=== PATIENT | female | born 1990 | race Caucasian/White ===

== ENCOUNTER 2017-03-01 17:13 | Inpatient (IN) ==
[~2017-03-01 17:13] MED LIST: CeFAZolin Pre 3,000 MG/100 ML 3,000 MG/100 ML BAG IVPB ONE; Famotidine 20 MG/2 ML VIAL IVP ONE; Metoclopramide 10 MG/2 ML VIAL IVP ONE; Oxytocin 20 units/ LR 1000 mL 20 UNIT/1,000 ML BAG IVC ONE; Ringers Solution, Lactated 1,000 ML IVC ONE
[2017-03-01] MEDS ORDERED: Ringers Solution, Lactated 1,000 ML IVC SCH (17:15)
[2017-03-01] MEDS ORDERED: Oxytocin 20 units/ LR 1000 mL 20 UNIT/1,000 ML BAG IVC SCH (17:15)
[2017-03-01 17:56] LABS: Basophils % 0.4 %; Hematocrit 35.8 % (35.3-44.9); Hemoglobin 11.9 g/dL (11.5-15.4); Immature Granulocytes % 0.4 % (0-4); Lymphocytes # 3.1 K/mcL (0.6-4.6); Mean Corpuscular HGB Conc 33.2 g/dL (31.6-35.5); Mean Corpuscular Hemoglobin 27.8 pg (28.0-33.3); Mean Corpuscular Volume 83.6 fL (83.0-100.0); Mean Platelet Volume 12.7 fL (9.4-12.4); Monocytes # 0.5 K/mcL (0.0-1.3); Monocytes % 4.3 %; Neutrophils # 7.5 K/mcL (1.6-8.9); Platelet Count 198 K/mcL (140-400); Red Blood Count 4.28 M/mcL (3.82-4.97); Red Cell Distribution Width 13.7 % (11.5-14.5); Segmented Neutrophils % 66.9 %
[2017-03-01 19:07] LABS: Amphetamine Screen,Urine Negative ng/mL (Cutoff=1000); Barbiturate Screen,Urine Negative ng/mL (Cutoff=200); Benzodiazepines Screen,Urine Negative ng/mL (Cutoff=200); Cannabinoid Screen,Urine Positive ng/mL (Cutoff = 50); Cocaine Screen,Urine Negative ng/mL (Cutoff= 300); Opiate Screen,Urine Negative ng/mL (Cutoff=300); Phencyclidine Screen,Urine Negative ng/mL (Cutoff=25)
--- NOTE | 2017-03-01 19:59 | OB/GYN History & Physical ---
Date of Encounter: 03/01/17 Time of Encounter: 19:53 Assessment and Plan (1) 37 weeks gestation of Current visit: Yes Status: Acute BPP 2/8 today. Tracing now reactive, but will keep for monitoring Pt keeps going to smoke against medical advice and leaving the unit. Discussed with patient the need for continuous monitoring and needing to observe the baby. Discussed risks including infant due to lack of early intervention when off monitor. Pt refuses nicotine patch. Repeat C/S tomorrow 24 hours after lovenox dose (2) DVT complicating Current visit: Yes Status: Acute Qualifiers: Trimester: third trimester Qualified Code(s): O22.33 - Deep phlebothrombosis in , third trimester (3) Hepatitis C Current visit: No Status: Chronic Qualifiers: Viral hepatitis chronicity: unspecified Hepatic coma status: without hepatic coma Qualified Code(s): B19.20 - Unspecified viral hepatitis C without hepatic coma (4) complicated by subutex maintenance, antepartum Current visit: No Status: Chronic History of Present Illness HPI: Ms. Delgado is a 26 year old female admitted from office for repeat c/s tomorrow for non reactive NST and BPP 2/8 with continuous monitoring overnight. 37+1 weeks with complications of history of DVT and PE, on lovenox, Hepatitis C , opiate dependancy with dismissal from maternal recovery program for non compliance. Labs:A-, Rubella immune, Hep C positive, all other serologies negative. Past Med Surg Social Fam HX - Past Medical History Source: patient Medical history: DVT, hepatitis, liver disease, pulmonary embolus, other ( opiate dependance) Psychiatric history: bipolar - Past Surgical History Surgical History: , other - Social History Smoking Status: Current every day smoker Packs per day: 1 Smokeless Tobacco Status: No Alcohol use: none Drug use: opiates, marijuana, other - Family History Mother Age: 52 Living Status: Still Living Hx Family Cardiac Disorders: No Hx Family Respiratory Disorders: No Hx Family Cancer: No Hx Family GI Disorders: No Hx Family Genitourinary Disorders: No Hx Family Endocrine Disorder: No Hx Family Musculoskeletal Disorders: No Hx Family Neuromuscular Disorders: No Hx Family Neurologic Disorders: No Hx Family HEENT Disorders: No Hx Family Autoimmune Disorders: No Hx Family Reproductive Disorders: No Hx Family Psychosocial Disorders: No Hx Family Medical Disorders: Yes (blood clot) Obstetrical History - Pregnancies : 3 Para: 2 Term: 2 : 0 Ab's: 0 Livin Medications and Allergies Buprenorphine HCl [Subutex] 4 mg PO BID 06/08/15 [History] Enoxaparin [Lovenox] 100 mg SQ Q12HR #28 syr 03/15/16 [Rx] Allergies promethazine [From Phenergan] Allergy (Verified 06/08/15 08:05) Rash tramadol [From Ultram] Allergy (Verified 06/08/15 08:07) Swelling of Lip/Tongue/Throat Exam - Constitutional Constitutional: well developed, well nourished, no acute distress - Neck Neck exam: full ROM - Lungs Respiratory exam: CTAB - Cardiovascular Cardiovascular exam: RRR, +S1, +S2 - Abdomen Abdomen: Present: bowel sounds normal, gravid, non tender - Extremities Extremities exam: normal capillary refill, normal inspection - Uterus Uterus exam: Present: normal size, normal contour Results Result Diagrams: 03/01/17 17:30 Abnormal lab results WBC 11.2 K/mcL (4.3-11.1) H 03/01/17 17:30 MCH 27.8 pg (28.0-33.3) L 03/01/17 17:30 MPV 12.7 fL (9.4-12.4) H 03/01/17 17:30 U Marijuana (THC) Screen Positive ng/mL (Cutoff = 50) H 03/01/17 18:30 All other labs normal.
[2017-03-01] MEDS: Nicotine 14 MG PATCH.TD24 TD SCH (23:49)
--- NOTE | 2017-03-02 03:55 | Anesthesia Evaluation PreOp ---
Date of Encounter: 03/02/17 Time of Encounter: 03:59 - Past History Planned Operation: Repeat Cardiac History: Denies any Significant Hx Pulmonary History: Smoker, Other (currently has PE (tx with therapeutic lovenox 200mg/day) MUST WAIT ATLEAST 24 HOURS for NEURAXIAL) SHERIFF SERGEANT History: Other (Scoliosis per patient (difficult previous regional)) Other Medical History: Hepatic (HEP C+), Other (Hx IV drug abuse - Herion ( currently tx of Subutex 4mg BID)) Anesthesia History: No Prior Anesthetic Complications, Past Anesthesia (1st section GA, 2nd section Regional,) : Yes Alcohol Use: none Drug use: opiates, marijuana, IV Drug Use, other Medications and Allergies Buprenorphine HCl [Subutex] 4 mg PO BID 06/08/15 [History] Enoxaparin [Lovenox] 100 mg SQ Q12HR #28 syr 03/15/16 [Rx] Allergies promethazine [From Phenergan] Allergy (Verified 06/08/15 08:05) Rash tramadol [From Ultram] Allergy (Verified 06/08/15 08:07) Swelling of Lip/Tongue/Throat Anesthesia Results - Labs 03/01/17 17:30 Anesthesia Exam - HEENT Pupil (Motor): Pupils equal Mallampati: III (right upper chipped tooth) Teeth: Normal Oral Opening: Greater than 3 - SHERIFF SERGEANT LOC: Oriented SHERIFF SERGEANT Motor: Normal RUE, Normal LUE, Normal RLE, Normal LLE, Normal Face SHERIFF SERGEANT Sensory: Normal: RUE, LUE, RLE, LLE, Face - Cardiac Rhythm: Regular Murmur: None - Pulmonary Breath Sounds: bilateral Clear Respiratory Effort: Symmetrical Anesthesia Assess/Plan ASA Score: 3 Modified Dulac Scale for Level of Consciousness: Cooperative, oriented, and tranquil Anesthetic Plan: General, Regional, Precautions (D/T treatment reg of LMWH must await FULL 24hrs for Regional, and d/t previous regional difficulties plan on waiting full 24hrs post INJ to resume LMWH therapy.) Monitoring Plan: Standard Monitors Recovery Plan: PACU
--- NOTE | 2017-03-02 03:56 | Event Note ---
Date of Encounter: 03/02/17 Time of Encounter: 03:53 Pt has now had 2 prolonged decelerations with monitoring. Does resolve to Cat I tracing. Pt with history of sleep apnea. Discussed with Dr. Hunt. Will apply pulse ox and O2 while sleeping. Continuous monitoring until delivery. Plan for C /S 24 hours after last lovenox dose unless prolonged decel reoccurs that does not resolve.
[2017-03-02] MEDS ORDERED: Ondansetron 4 MG/2 ML VIAL IVP PRN ×2 (09:16→12:32)
[2017-03-02] MEDS ORDERED: Metoclopramide 10 MG/2 ML VIAL IVP ONE (09:18)
[2017-03-02] MEDS ORDERED: CeFAZolin Pre 2,000 MG/100 ML 2,000 MG/100 ML BAG IVPB ONE (09:18)
[2017-03-02] MEDS ORDERED: Famotidine 20 MG/2 ML VIAL IVP ONE (09:18)
[2017-03-02] MEDS ORDERED: Ringers Solution, Lactated 1,000 ML IVC SCH ×2 (09:30→12:45)
[2017-03-02] MEDS ORDERED: *HR* Morphine Sulfate/PF 5 MG/10 ML AMPUL ONE (10:01)
[2017-03-02] MEDS ORDERED: EPHEDrine 50 MG/ML VIAL ONE (10:02)
[2017-03-02] MEDS ORDERED: *HR* FentaNYL (PF) 100 MCG/2 ML VIAL ONE (10:02)
[2017-03-02] MEDS ORDERED: *HR* Phenylephrine 10 MG/ML VIAL ONE (10:04)
[2017-03-02] MEDS ORDERED: Water for inj. (sterile) 10 ML IV ONE (10:04)
[2017-03-02] MEDS ORDERED: *HR* Propofol 200 MG/20 ML VIAL IVP ONE (10:14)
[2017-03-02] MEDS ORDERED: *HR* Oxytocin 10 UNIT/ML VIAL IM ONE ×2 (10:15→11:31)
[2017-03-02] MEDS ORDERED: Lidocaine -MPF 2% 5 ML VIAL ONE ×2 (10:25→10:33)
[2017-03-02] MEDS ORDERED: Acetaminophen IV 1,000 MG/100 ML INFUS..BTL IVPB ONE (11:17)
[2017-03-02] MEDS ORDERED: Ondansetron 4 MG/2 ML VIAL ONE (11:31)
[2017-03-02] MEDS ORDERED: Metoclopramide 10 MG/2 ML VIAL IVP PRN (12:32)
[2017-03-02] MEDS ORDERED: Sennosides 8.6 MG TABLET PO PRN (12:32)
--- NOTE | 2017-03-02 12:44 | OB/GYN Procedure Note ---
OB-SEED POTATO ARRANGER: Procedure - Diagnosis Date of procedure: 03/02/17 Pre-op diagnosis: IUP, undesired fertility Post-op diagnosis: same - Procedure Procedure: RC/S, BTL Surgeon: Reggie Rg Anesthesia Type: General Estimated blood loss (cc): 200 Fluids: crystalloid Procedure Complications: none Specimens collected: placenta Disposition: floor Findings: normal uterus, ovaries and tubes
[2017-03-02] MEDS ORDERED: Oxytocin 20 units/ LR 1000 mL 20 UNIT/1,000 ML BAG IVC SCH (12:45)
[2017-03-02] MEDS ORDERED: Ondansetron 4 MG/2 ML VIAL IVP ONE (13:10)
[2017-03-02] MEDS ORDERED: *HR* HYDROmorphone (PF) 1 MG/ML SYRINGE IVP PRN (13:10)
[2017-03-02] MEDS ORDERED: *HR* Morphine 2 MG/ML SYRINGE IVP PRN ×2 (13:10→13:12)
--- NOTE | 2017-03-02 13:14 | Anesthesia Evaluation Post Op ---
Date of Encounter: 03/02/17 Time of Encounter: 13:05 - Vital Signs Vital Signs: VSS - Lungs Lungs: Clear Ascult./Percussion - Airway Airway: Non-obstructed - Cardiovascular Regular Rate - Mental Status Mental Status: Alert & Oriented, Answers Appropriately - Pain Pain Scale: 4 Pain Scale used: Numeric (1 - 10) - Nausea Vomiting Nausea Vomiting: Not Present - Hydration Hydration: NPO, Alvarez catheter - Discharge PostOp Status: Transfer Patient to floor
[2017-03-02] MEDS: *HR* HYDROmorphone (PF) 1 MG/ML SYRINGE IVP PRN ×5 (13:48→22:36)
[2017-03-02] MEDS: *HR* OxyCODONE/APAP 5/325 TABLET PO PRN (17:28)
[2017-03-02] MEDS ORDERED: Ringers Solution, Lactated 1,000 ML ONE (17:45)
--- NOTE | 2017-03-02 20:49 | OB/GYN Procedure Note ---
Section - Date of procedure: 03/02/17 Preop diagnosis: desires repeat Post-op diagnosis: same Procedure: repeat low transverse, bilateral tubal ligation Surgeon: Reggie Rg Estimated blood loss (cc): 200 Anesthesiologist: Miley Ceron Tufting Machine Operator Single Needle: Fatoumata Olmos Anesthesia Type: Spinal section complications: none Disposition: L&D Recovery Room Specimens: Placenta, Cord blood - (s) Infant A Infant Delivery Date: 03/02/17 Infant Delivery Time: 11:01 Presentation: vertex Gender: Male Gram Weight: 2.49 kg at 1 minute: 8 at 5 minutes: 9 Shoulder Dystocia: not encountered - Narrative Narrative: Patient was brought to the operating room and was given satisfactory spinal anesthesia. The abdomen was prepped and draped in a sterile fashion. A Pfannenstiel incision was made and carried sharply down to the level of fascia. The fascia was incised transversely. The fascia was dissected away from the underlying rectus muscles. With sharp and blunt dissection, the rectus muscles were divided in midline. The peritoneum was entered bluntly. The incision was carried vertically with scissors. Transverse incision was made across the bladder peritoneum. The bladder was dissected away from the underlying lower uterine segment. Bladder retractor was placed to protect the bladder. The lower uterine segment was entered sharply with a scalpel. Incision was manually extended. Clear amniotic fluid was encountered. The 's head was pulled up and delivered easily as were the shoulders and body. The mouth and oropharynx were suctioned. The cord was clamped and cut. The infant was passed off to the waiting health systems analyst in satisfactory condition. Placenta was extracted completely and found to be intact. Uterus was explored and found to be empty. Uterus was delivered through the abdominal incision and massaged vigorously. Intravenous Pitocin was administered. Clamps were placed about the margins of the uterine incision, which was closed primarily with a running locking stitch of 0 Vicryl with adequate hemostasis. Secondary running locking stitch was placed for extra strength to the wound. At this point, attention was diverted to the patient's tubes, a Carrie clamp grasped the isthmic portion of each tube and approximately 2-cm knuckle on either side was tied off with two lengths of 0 plain catgut. Intervening knuckle was excised and passed off the field. The proximal end of the tubal mucosa was cauterized. The uterus was returned to its proper anatomic position in the abdomen. The fascia was closed with a simple running stitch of 0 vicryl. The subcutaneous tissue was closed with 3-0 vicryl. The skin was closed with running subcuticular of 4-0 vicryl. Patient was brought to the recovery room in satisfactory condition. There were no complications. All sponge, needle, and instrument counts were reported to be correct.
[2017-03-02] MEDS: *HR* Buprenorphine HCl 2 MG SUBLINGUAL TABLET SL SCH (21:01)
[2017-03-03] MEDS: *HR* HYDROmorphone (PF) 1 MG/ML SYRINGE IVP PRN (01:51)
[2017-03-03] MEDS: *HR* OxyCODONE/APAP 5/325 TABLET PO PRN ×4 (03:23→22:20)
[2017-03-03] MEDS: Ibuprofen 600 MG TABLET PO PRN ×3 (03:25→20:29)
[2017-03-03 07:28] LABS: Basophils % 0.3 %; Hematocrit 31.1 % (35.3-44.9); Hemoglobin 10.4 g/dL (11.5-15.4); Immature Granulocytes % 0.3 % (0-4); Lymphocytes # 1.9 K/mcL (0.6-4.6); Lymphocytes % 16.2 %; Mean Corpuscular HGB Conc 33.4 g/dL (31.6-35.5); Mean Corpuscular Hemoglobin 28.3 pg (28.0-33.3); Mean Corpuscular Volume 84.5 fL (83.0-100.0); Mean Platelet Volume 13.5 fL (9.4-12.4); Monocytes # 0.7 K/mcL (0.0-1.3); Monocytes % 6.2 %; Neutrophils # 8.8 K/mcL (1.6-8.9); Platelet Count 146 K/mcL (140-400); Red Blood Count 3.68 M/mcL (3.82-4.97); Red Cell Distribution Width 13.8 % (11.5-14.5)
[2017-03-03] MEDS: Prenatal Vit/FA 1 EACH TABLET PO SCH (08:09)
[2017-03-03] MEDS: Nicotine 14 MG PATCH.TD24 TD SCH (08:38)
--- NOTE | 2017-03-03 08:51 | OB/GYN Progress Note ---
Date of Encounter: 03/03/17 Time of Encounter: 08:46 - Assessment and Plan (1) Status post repeat low transverse section Current Visit: Yes Status: Acute Increase activity per protocol (2) Wheezing on right side of chest on inhalation Current Visit: Yes Status: Acute Respiratory for nebulizer, incentive spirometry, ambulate (3) Wheezing on left side of chest on exhalation Current Visit: Yes Status: Acute Respiratory for nebulizer, incentive spirometry, ambulate (4) H/O deep venous thrombosis Current Visit: Yes Status: Acute On EPC \Ds. Restart Lovenox (5) History of pulmonary embolus (PE) Current Visit: Yes Status: Acute Restart Lovenox Subjective - Subjective Principal diagnosis: POD1,PPD1 s/p Rpt C/S w/ BPS Interval history: The pt is POD1 rpt c/s w/ BPS. She reports good po pain control. She is tolerating a regular diet. She denies any flatus. She is voiding without difficulty Patient reports: appetite normal, voiding normally, pain well controlled : doing well Objective - Vital Signs Latest vital signs: Vital Signs Temp Pulse Pulse Resp BP Pulse Ox 03/03/17 08:05 98.1 F 54 16 111/74 98 03/03/17 03:00 98.6 F 68 16 126/75 98 03/02/17 23:04 98.3 F 58 16 99/64 98 03/02/17 19:50 98 F 69 16 107/69 100 03/02/17 16:15 97.7 F 61 16 116/73 03/02/17 15:15 97.9 F 51 18 119/72 03/02/17 14:45 98.0 F 51 18 122/75 03/02/17 14:15 97.9 F 65 64 16 131/73 100 Intake and Output 03/02/17 03/03/17 03/03/17 23:59 07:59 15:59 Intake Total 300 / 300 Output Total 300 / 300 750 / 750 Balance 0 / 0 -750 / -750 Intake: Oral 300 / 300 Output: Urine 200 / 200 Catheter 300 / 300 550 / 550 Other: Weight 99.2 kg Patient Weight 03/03/17 23:59 Weight 99.2 kg - Exam Lungs: bilateral: normal, wheezes (all crum) Chest: Normal S1, Normal S2 Extremities: Present: normal. Absent: tenderness, edema Abdomen: Present: normal appearance, soft. Absent: distention, tenderness Incision: Present: dry, dressed Uterus: Present: normal, firm - Labs Labs: Laboratory Results - last 24 hr 03/02/17 03/03/17 12:30 06:37 WBC 11.5 H RBC 3.68 L Hgb 10.4 L D Hct 31.1 L MCV 84.5 MCH 28.3 MCHC 33.4 RDW 13.8 Plt Count 146 MPV 13.5 H Immature Gran % 0.3 Seg Neutrophils % 77.0 Lymphocytes % 16.2 Monocytes % 6.2 Eosinophils % 0.0 Basophils % 0.3 Neutrophils # 8.8 Lymphocytes # 1.9 Monocytes # 0.7 Eosinophils # 0.0 Basophils # 0.0 Baby's Blood Type A RH NEGATIVE Mother's Blood Type A RH NEGATIVE Rhogam Indicated NO - Allied health notes Allied health notes reviewed: nursing
[2017-03-03] MEDS ORDERED: Albuterol 2.5 MG/3 ML NEBULIZER IH ONE (08:55)
[2017-03-03] MEDS ORDERED: Albuterol 2.5 MG/3 ML NEBULIZER IH PRN (08:55)
[2017-03-03] MEDS: *HR* Buprenorphine HCl 2 MG SUBLINGUAL TABLET SL SCH ×3 (09:00→20:29)
[2017-03-03] MEDS: *HR* Enoxaparin 80 MG/0.8 ML SYRINGE SQ SCH (11:04)
[2017-03-03] MEDS: Simethicone 80 MG TAB.CHEW PO PRN (15:15)
[2017-03-04] MEDS: *HR* OxyCODONE/APAP 5/325 TABLET PO PRN ×2 (02:34→13:32)
[2017-03-04] MEDS: *HR* Enoxaparin 80 MG/0.8 ML SYRINGE SQ SCH (05:21)
[2017-03-04] MEDS: Ibuprofen 600 MG TABLET PO PRN ×3 (07:21→23:31)
[2017-03-04] MEDS: Simethicone 80 MG TAB.CHEW PO PRN (07:21)
[2017-03-04] MEDS: Prenatal Vit/FA 1 EACH TABLET PO SCH (07:22)
--- NOTE | 2017-03-04 07:54 | OB/GYN Progress Note ---
Date of Encounter: 03/04/17 Time of Encounter: 07:52 - Assessment and Plan (1) H/O deep venous thrombosis Current Visit: Yes Status: Acute Continue lovenox (2) Status post repeat low transverse section Current Visit: Yes Status: Acute Encourage ambulation Dressing removed Patient may shower (3) complicated by subutex maintenance, antepartum Current Visit: No Status: Chronic Patient continues subutex maintenance (4) Breast feeding status of mother Current Visit: Yes Status: Acute support prn Subjective - Subjective Principal diagnosis: Postop/ day 1 repeat c/s with BPS Interval history: Patient doing well but reports pain has increased. Patient is currently taking subutex, motrin and percocet for pain. Dressing removed. Steri strips present. Patent is both breast and bottle feeding . Infant is a 5 day hold. Patient reports: appetite normal, voiding normally, ambulating normally : doing well, nursing well, bottle feeding Objective - Vital Signs Latest vital signs: Vital Signs Temp Pulse Resp BP Pulse Ox 03/03/17 19:45 98.6 F 90 16 106/71 98 03/03/17 18:06 16 98 03/03/17 15:33 98.3 F 69 16 123/77 03/03/17 09:08 18 98 03/03/17 08:05 98.1 F 54 16 111/74 98 Intake and Output 03/03/17 03/03/17 03/04/17 15:59 23:59 07:59 Intake Total 1350 / 1350 600 / 600 300 / 300 Output Total 800 / 800 1000 / 1000 200 / 200 Balance 550 / 550 -400 / -400 100 / 100 Intake: IV Fluids 800 / 800 Lactated Ringers 1,000 ML 800 / 800 @ 125 mls/hr IVC .Q8H ALFRED Rx#:[id number] Oral 550 / 550 600 / 600 300 / 300 Output: Urine 500 / 500 1000 / 1000 200 / 200 Catheter 300 / 300 Other: Meal Lunch Dinner Percent of Meal Consumed 80% 90% - Exam Lungs: left: wheezes, right: normal Chest: Normal S1, Normal S2 Extremities: Present: normal Abdomen: Present: normal appearance, soft Incision: Present: normal, dry, intact, dressed (dressing removed, steri strips and binder still present) Uterus: Present: normal, firm Fundal Height: 2 (U/2) Comments: Scant lochia - Labs Labs: Laboratory Results - last 24 hr 03/02/17 12:30 Rhogam Indicated NO
[2017-03-04] MEDS: *HR* Buprenorphine HCl 2 MG SUBLINGUAL TABLET SL SCH ×2 (08:48→21:24)
[2017-03-05] MEDS ORDERED: Acetaminophen 325 MG TABLET PO PRN (03:53)
[2017-03-05] MEDS: Ibuprofen 600 MG TABLET PO PRN (05:42)
[2017-03-05] MEDS: *HR* Enoxaparin 80 MG/0.8 ML SYRINGE SQ SCH (05:43)
[2017-03-05 08:22] VITALS: BP 106/68
--- NOTE | 2017-03-05 08:24 | Discharge Summary ---
Date of Encounter: 03/05/17 Time of Encounter: 08:38 - Discharge Diagnosis (1) Status post repeat low transverse section Priority: Primary Status: Acute Comments: Patient doing well s/p RLTCS day 3 Pain is well controlled Able to urinate and pass gas without difficulty Tolerating regular diet well Lochia is light and without clots Discharge to room today (infant is on 5 day hold) (2) Breast feeding status of mother Priority: Secondary Status: Acute Comments: Patient is pumping Difficulty with latch (3) History of pulmonary embolus (PE) Priority: Secondary Status: Acute Comments: Currently on lovenox. Will discharge home with lovenox f/u in office with Dr Rg in 2 weeks. - Discharge Medications Prescriptions: Ibuprofen [Motrin] 600 mg PO Q6HR PRN #60 tablet PRN Reason: Cramping Enoxaparin [Lovenox] 40 mg SQ Q12HR 42 Days Breast Pump [BREAST PUMP] 1 each .ROUTE AD #1 each Docusate [Colace] 100 mg PO BID #30 capsule Ferrous Sulfate 325 mg PO DAILY #60 tablet Home Medications: Buprenorphine HCl [Subutex] 4 mg PO BID 06/08/15 [History] Acetaminophen [Tylenol] 650 mg PO Q6HR PRN #0 tablet 03/05/17 [Rx] Albuterol Neb [Proventil Neb] 2.5 mg IH [id number] PRN #0 inhsol 03/05/17 [Rx] Breast Pump [BREAST PUMP] 1 each .ROUTE AD #1 each 03/05/17 [Rx] Docusate [Colace] 100 mg PO BID #30 capsule 03/05/17 [Rx] Enoxaparin [Lovenox] 40 mg SQ Q12HR 42 Days 03/05/17 [Rx] Ferrous Sulfate 325 mg PO DAILY #60 tablet 03/05/17 [Rx] Ibuprofen [Motrin] 600 mg PO Q6HR PRN #60 tablet 03/05/17 [Rx] Vit/FA 1 each PO DAILY tablet 03/05/17 [Rx] Simethicone [Gas-X] 80 mg PO TID PRN #0 tab.chew 03/05/17 [Rx] Allergies/Adverse Reactions: Allergies promethazine [From Phenergan] Allergy (Verified 06/08/15 08:05) Rash tramadol [From Ultram] Allergy (Verified 06/08/15 08:07) Swelling of Lip/Tongue/Throat Data Procedures and tests throughout hospitalization: Laboratory Tests 03/01/17 03/01/17 03/02/17 17:30 18:30 12:30 WBC 11.2 H RBC 4.28 Hgb 11.9 Hct 35.8 MCV 83.6 MCH 27.8 L MCHC 33.2 RDW 13.7 Plt Count 198 MPV 12.7 H Immature Gran % 0.4 Seg Neutrophils % 66.9 Lymphocytes % 28.0 Monocytes % 4.3 Eosinophils % 0.0 Basophils % 0.4 Neutrophils # 7.5 Lymphocytes # 3.1 Monocytes # 0.5 Eosinophils # 0.0 Basophils # 0.0 Urine Opiates Screen Negative Ur Barbiturates Screen Negative Ur Phencyclidine Scrn Negative Ur Amphetamines Screen Negative U Benzodiazepines Scrn Negative Urine Cocaine Screen Negative U Marijuana (THC) Screen Positive H Baby's Blood Type A RH NEGATIVE Mother's Blood Type A RH NEGATIVE Rhogam Indicated NO 03/03/17 06:37 WBC 11.5 H RBC 3.68 L Hgb 10.4 L D Hct 31.1 L MCV 84.5 MCH 28.3 MCHC 33.4 RDW 13.8 Plt Count 146 MPV 13.5 H Immature Gran % 0.3 Seg Neutrophils % 77.0 Lymphocytes % 16.2 Monocytes % 6.2 Eosinophils % 0.0 Basophils % 0.3 Neutrophils # 8.8 Lymphocytes # 1.9 Monocytes # 0.7 Eosinophils # 0.0 Basophils # 0.0 Urine Opiates Screen Ur Barbiturates Screen Ur Phencyclidine Scrn Ur Amphetamines Screen U Benzodiazepines Scrn Urine Cocaine Screen U Marijuana (THC) Screen Baby's Blood Type Mother's Blood Type Rhogam Indicated Date of admission: 03/01/17 17:13 Primary care physician: PCP NO Consults: 03/01/17 19:22 Consult to Telecasting Engineer ([employer]) [CONS] Routine Reason For Exam: Reason for SW Consult: living situation, pos marjuana, subutex use Discharging clinician: Magda Sy Anticipated date of discharge: 03/05/17 - Patient Status Disposition: Home, Self-Care Condition: Good Functional capacity at discharge: independent ambulation Overall status at discharge: patient is progressing back to baseline - Discharge Instructions Follow Up With: NO,PCP [Primary Care Provider] - Reggie Rg MD [Partnered Physician] - - Diet and Activity Activity: increase activity as tolerated Diet: regular diet Hospital Course Reason for admission: section Delivery: section Episiotomy: none Laceration: none Other procedures: none complications: none Discharge diagnosis: IUP at term delivered [place] baby: male Time spent discussing smoking cessation with patient: 3 to 10 minutes Time Attestation: Total time spent providing and/or coordinating discharge services: Time Spent: Less than 30 minutes - VTE Documentation of Mechanical Device: Intermittent pneumatic compression device Exam - Constitutional Vitals: Temp Pulse Resp BP Pulse Ox 98.1 F 61 12 106/68 98 03/05/17 08:21 03/05/17 08:21 03/05/17 08:21 03/05/17 08:21 03/05/17 08:21 General appearance IM: cooperative, A&O X 3, pleasant - Respiratory Respiratory exam: Present: CTAB - Cardiovascular Cardiovascular exam IM: Present: RRR, +S1, +S2 - GI/Abdominal GI/Abdominal exam IM: normal bowel sounds, soft Incision: normal, dry, intact (steri-strips C/D/I) - Rectal Rectal exam: deferred - Uterine Tone: Firm Uterus Position: 2 Fingers Below Umbilicus, Midline - Extremities Exam Extremities exam IM: Present: normal capillary refill, normal inspection, radial pulses palpable and symetrical - Neurological Exam Neurological exam: alert, oriented X3
[2017-03-05] MEDS: *HR* Buprenorphine HCl 2 MG SUBLINGUAL TABLET SL SCH (09:43)
[2017-03-05] MEDS: Prenatal Vit/FA 1 EACH TABLET PO SCH (09:43)
== END 2017-03-05 10:45 | disposition home or self-care (01) | DRG 540 ==
LOC: 1NENULAB → 1NENUOBS 03-02 14:23
PROVIDERS: ADMIT Obstetrics & Gynecology; ATTEND Obstetrics & Gynecology